=== PATIENT | male | born 1955 | race Caucasian/White ===

== ENCOUNTER 2020-03-12 15:17 | Emergency (ER) | payer OTHER ==
[~2020-03-12] VITALS: Ht 188 cm; Wt 112.0 kg
[~2020-03-12 15:17] MED LIST: MOME17SP NS; PRED50TA PO
[2020-03-12] MEDS ORDERED: IV NORMAL SALINE 1,000ML 1,000 ML IV SCH (15:24)
--- NOTE | 2020-03-12 15:55 | RAD ---
EXAM: CHEST 1 VIEW History: Shortness of breath COMPARISON: 08/01/2013 TECHNIQUE: Single portable radiograph of the chest FINDINGS: The cardiac silhouette is unremarkable. Unchanged left apical bulla. The costophrenic sulci are clear and well demarcated. IMPRESSION: Unchanged left apical bulla. Electronically signed by: Castro Gomez MD (03/12/2020 3:52 PM) [id number]
[2020-03-12 15:58] LABS: BASO % 1 % (0-3); EOS % 0 % (0-3); HEMATOCRIT 48.1 % (39.0-53.0); HEMOGLOBIN 15.9 g/dL (13.0-17.5); LYMPH # 1.4 x10^3/uL (1.0-4.8); LYMPH % 31 % (24-48); MEAN CORPUSCULAR HEMOGLOBIN 30 pg (25-35); MEAN CORPUSCULAR HGB CONC 33 g/dL (31-37); MEAN CORPUSCULAR VOLUME 90 fL (79-100); MONO # 0.6 x10^3/uL (0.0-1.1); MONO % 14 % (0-9); NEUT # 2.4 x10^3uL (1.8-7.7); NEUT % 55 % (31-73); PLATELET COUNT 202 x10^3/uL (140-400); RED BLOOD COUNT 5.36 x10^6/uL (4.30-5.70); RED CELL DISTRIBUTION WIDTH 14.2 % (11.5-14.5); WHITE BLOOD COUNT 4.4 x10^3/uL (4.0-11.0)
[2020-03-12 16:04] LABS: CALCIUM 8.9 mg/dL (8.5-10.1); GFR 75.7; POTASSIUM 3.9 mmol/L (3.5-5.1)
[2020-03-12 16:17] LABS: ALBUMIN 3.2 g/dL (3.4-5.0); ALBUMIN/GLOBULIN RATIO 0.8 (1.0-1.7); TOTAL BILIRUBIN 0.5 mg/dL (0.2-1.0); TOTAL PROTEIN 7.2 g/dL (6.4-8.2)
[2020-03-12 16:19] VITALS: BP 152/91
[2020-03-12] MEDS ORDERED: HYDR-3165 PO (16:34)
[2020-03-12] MEDS ORDERED: BENZ100C PO (16:34)
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
--- NOTE | 2020-03-12 17:02 | EKG ---
[address] [address] Test Date: 2020-03-12 Test Time: 15:26:27 Pat Name: RUTH LOTT Department: Room: Gender: M [employer] Education Teaching Assistant: : 1955 Requested By: MART GUILLERMO Order Number: [id number] Reading MD: Mike Barreto Measurements Intervals [place] Rate: 101 P: 219 MS: 114 QRS: 106 QRSD: 92 T: 42 QT: 308 QTc: 400 Interpretive Statements SINUS TACHYCARDIA LEFT ATRIAL ABNORMALITY RIGHTWARD AXIS LOW LIMB LEAD VOLTAGE ABNORMAL ECG RI6.02 No previous ECG available for comparison Electronically Signed On 03-13-2020 8:44:51 CDT by Mike Barreto
== END 2020-03-12 16:45 | disposition home or self-care (01) ==
LOC: ER 15:17
DX: U07.1 COVID-19 (principal); J45.909 Unspecified asthma, uncomplicated; F17.210 Nicotine dependence, cigarettes, uncomplicated
CPT/HCPCS: 36415; 71045; 80053; 82550; 83605; 83880; 84484; 85025; 85610; 87040; 93005; 99285; J7030